=== PATIENT | female | born 1985 | race African-American/Black ===

== ENCOUNTER 2017-09-22 08:37 | Emergency (ER) | payer MEDICAID ==
[2017-09-22 08:39] VITALS: BP 119/89; PULSE 89; RESP 18; TEMP 98.6; O2SAT 99
--- NOTE | 2017-09-22 08:52 | PD ---
HPI Chief Complaint: Cold / Flu Symptoms Time Seen by Provider: 08:52 Travel History International Travel<30 days: No Contact w/Intl Traveler<30days: No Traveled to known affect area: No History of Present Illness HPI 32-year-old female presents to the emergency department for evaluation of cough , chest congestion fever, body aches since last evening. Patient states that she is coughing to the point of emesis. Her ribs are hurting. She reports significant pain in the left rib cage. Denies any nausea or vomiting. She has not had any diarrhea. Denies any urinary symptoms. She is uncertain of . She has no other symptoms to report. [facility] Past Medical History Medical History: Denies Significant Hx ?: Unknown Social History Alcohol Use: No Tobacco Use: Yes (1/2 a pack ) Substance Use: No Allergies-Medications (Allergen,Severity, Reaction): Coded Allergies: No Known Allergies (Unverified , 09/22/17) Review of Systems Except as stated in HPI: all other systems reviewed are Neg Physical Exam Narrative GENERAL: Well-nourished female patient, in no acute distress. SKIN: Focused skin assessment warm/dry. HEAD: Atraumatic. Normocephalic. EARS: Bilateral pinnae and external canals appear within normal limits. Bilateral tympanic membranes without erythema, dullness or perforation. EYES: Pupils equal and round. No scleral icterus. No injection or drainage. ENT: Mucosa pink and moist. Mild erythema without exudate. No uvular edema. No uvular, palatal, or tonsillar deviation. Airway patent. Nasal turbinates appear normal without nasal blood, purulent drainage or septal hematoma. NECK: Trachea midline. No JVD. CARDIOVASCULAR: Regular rate and rhythm. No murmur appreciated. RESPIRATORY: No accessory muscle use. Coarse throughout, inspiratory wheeze, coarse cough as well.. Breath sounds equal bilaterally. GASTROINTESTINAL: Abdomen soft, non-tender, nondistended. Hepatic and splenic margins not palpable. MUSCULOSKELETAL: No obvious deformities. No clubbing. No cyanosis. No edema. NEUROLOGICAL: Awake and alert. No obvious cranial nerve deficits. Motor grossly within normal limits. Normal speech. PSYCHIATRIC: Appropriate mood and affect; insight and judgment normal. Data Data Last Documented VS Vital Signs Date Time Temp Pulse Resp B/P (MAP) Pulse Ox O2 Delivery O2 Flow Rate FiO2 12/21/17 08:39 98.6 89 18 119/89 (99) 99 Room Air Orders Orders Influenzae A/B Antigen (09/22/17 08:56) Chest, Single Ap (09/22/17 08:56) Albuterol-Ipratropium Neb (Duoneb Neb) (09/22/17 09:00) Dexamethasone Inj (Decadron Inj) (09/22/17 09:00) Ed Urine Pregnancytest Poc (09/22/17 08:56) MDM Medical Decision Making Medical Screen Exam Complete: Yes Emergency Medical Condition: Yes Medical Record Reviewed: Yes Differential Diagnosis Influenza versus common cold versus pneumonia versus costochondritis versus viral URI Narrative Course 32-year-old female presents to the emergency department for evaluation. Patient appears without distress. Her influenza is negative. She is afebrile here. Chest x-ray is without acute cardiopulmonary disease. Patient likely has a viral upper respiratory infection. She'll be treated as such. She is encouraged to follow-up with a primary care provider and return immediately with any acute worsening of symptoms. Diagnosis Primary Impression: Bronchitis Referrals: Primary Care Physician Patient Instructions: Acute Bronchitis (ED), General Instructions Additional Instructions: Humidified air may help to alleviate symptoms Follow-up with a primary care provider Tylenol or ibuprofen as directed on the package as needed for fever and/or pain Return immediately to the emergency department with any acute worsening symptoms Med/Other Pt SpecificInfo: Prescription(s) given Scripts Benzonatate (Tessalon Perles) 100 Mg Cap 100 MG PO TID Y for COUGH, #20 CAP 0 Refills Prov: Francesca Tomlinson 09/22/17 Prednisone (Prednisone) 50 Mg Tab 50 MG PO DAILY for 5 Days, #5 TAB 0 Refills Prov: Francesca Tomlinson 09/22/17 Albuterol 18 GM Inh (Ventolin Hfa 18 GM Inh) 90 Mcg/Act Aer 2 PUFF INH Q4H Y for SHORTNESS OF BREATH, #1 INHALER 0 Refills Prov: Francesca Tomlinson 09/22/17 Disposition: 01 DISCHARGE HOME Condition: Stable Francesca Tomlinson Sep 22, 2017 08:52
[2017-09-22] MEDS ORDERED: DEXAMETHASONE SOD PHOS 4 MG/ML VIAL IM ONE (09:00)
[2017-09-22] MEDS: RESP: ALBUTEROL 2.5 MG/IPRATROPIUM 0.5 MG NEB (SCH) INH ×2 (09:24→09:25)
--- NOTE | 2017-09-22 09:29 | RADRPT ---
EXAM DATE/TIME: 09/22/2017 09:01 [place] COMPARISON: No previous studies available for comparison. INDICATIONS : Short of breath. MEDICAL HISTORY : None. SURGICAL HISTORY : None. ENCOUNTER: Initial ACUITY: 1 day PAIN SCORE: 0/10 LOCATION: Bilateral chest FINDINGS: A single view of the chest demonstrates the lungs to be symmetrically aerated without evidence of mas s, infiltrate or effusion. The cardiomediastinal contours are unremarkable. Osseous structures are intact. CONCLUSION: Normal examination. Frankie Moreno MD on September 22, 2017 at 9:27 Board Certified Radiologist. This report was verified electronically.
[2017-09-22] MEDS ORDERED: VENTAER INH (09:47)
[2017-09-22] MEDS ORDERED: BENZ100 PO (09:47)
[2017-09-22] MEDS ORDERED: PRED50 PO (09:47)
== END 2017-09-22 10:07 | disposition home or self-care (01) ==
LOC: NEPD 08:37
DX: J40 Bronchitis, not specified as acute or chronic (principal); F17.200 Nicotine dependence, unspecified, uncomplicated
CPT/HCPCS: 71010; 84703; 87804; 94640; 94664; 96372; 99284; J1100

== ENCOUNTER 2018-02-17 17:37 | Emergency (ER) | payer MEDICAID ==
[~2018-02-17] VITALS: Ht 162.6 cm; Wt 73.7 kg
[~2018-02-17 17:37] MED LIST: BENZ100 PO; PRED50 PO; VENTAER INH
[2018-02-17 17:49] VITALS: BP 131/63; PULSE 95; RESP 16; TEMP 98.4; O2SAT 100
--- NOTE | 2018-02-17 19:44 | PD ---
HPI Chief Complaint: [facility] Problem/Complaint Time Seen by Provider: 18:29 Travel History International Travel<30 days: No Contact w/Intl Traveler<30days: No Traveled to known affect area: No History of Present Illness HPI 32-year-old woman presents to the emergency department complaining of lower abdominal pain. She reports that she had a positive test a couple days ago, but has had negative test since then. She did have bleeding 3 days ago. She reports her last normal menstrual period was January 01. She is 11 para 9. She has had a previous ectopic and had a right salpingectomy last year as well as a left tubal "cleanout" for BV at the time. Since her bleeding over the past couple days she has developed abnormal malodorous vaginal discharge with vaginal irritation and itching. She sexually active one male partner, same partner for the past year. She is having some lower abdominal cramping with this. History Past Medical History Medical History: Denies Significant Hx Tetanus Vaccination: < 5 Years Influenza Vaccination: Yes Social History Alcohol Use: No Tobacco Use: Yes (1/2 a pack ) Allergies-Medications (Allergen,Severity, Reaction): Coded Allergies: No Known Allergies (Unverified , 02/17/18) Reported Meds & Prescriptions Reported Meds & Active Scripts Active No Active Prescriptions or Reported Medications Review of Systems Except as stated in HPI: all other systems reviewed are Neg Physical Exam Narrative CARDIOVASCULAR: Regular rate and rhythm. No murmur appreciated. RESPIRATORY: No accessory muscle use. Clear to auscultation. Breath sounds equal bilaterally. GASTROINTESTINAL: Abdomen soft, non-tender, nondistended. Hepatic and splenic margins not palpable. MUSCULOSKELETAL: No obvious deformities. PELVIC: Normal external female genitalia. Scant clear vaginal discharge. Normal-appearing cervix. No pj cervical motion tenderness. No palpable adnexal masses or uterine enlargement. Data Data Last Documented VS Vital Signs Date Time Temp Pulse Resp B/P (MAP) Pulse Ox O2 Delivery O2 Flow Rate FiO2 02/17/18 17:49 98.4 95 16 131/63 (85) 100 Orders Orders Ed Urine Pregnancytest Poc (02/17/18 18:17) Beta Hcg (Quant/Titer) (02/17/18 18:52) Gc And Chlamydia Pcr (02/17/18 18:52) Wet Prep Profile (02/17/18 18:52) Labs Laboratory Tests Test 02/17/18 19:00 02/17/18 19:20 Human Chorionic Gonadotropin, Quant LESS THAN 1 MIU/ML Clue Cells (Wet Prep) PRESENT Vaginal Trichomonas (Wet Prep) NONE SEEN Vaginal Yeast (Wet Prep) NONE SEEN MDM Medical Decision Making Medical Screen Exam Complete: Yes Emergency Medical Condition: Yes Interpretation(s) LABS: Wet prep, positive for clue cells HCG negative GC chlamydia pending Differential Diagnosis Cervicitis, vaginitis, trichomoniasis, , ectopic, other Narrative Course Medical decision making INITIAL: 32-year-old woman presents emergency department complaining of lower abdominal pain and some cramping and some vaginal discharge. Suspect vaginitis or cervicitis. Possible . Will check beta-hCG given history of ectopic and positive test at home. Likely treatment and discharge. Patient requesting refill on her eczema medicine. Diagnosis Primary Impression: Bacterial vaginosis Patient Instructions: General Instructions Additional Instructions: Take Flagyl as prescribed. Use Diflucan if needed. Follow-up with your primary doctor in [facility] for routine follow-up. Return to the emergency department for any new or worsening symptoms. Med/Other Pt SpecificInfo: Prescription(s) given Scripts Fluocinonide Topical (Fluocinonide Topical) 0.05% Soln 1 APPLIC TOPICAL DAILY, #60 ML 0 Refills Prov: Frankie Mccall MD 02/17/18 Metronidazole (Flagyl) 500 Mg Tab 500 MG PO BID for Infection for 7 Days, #14 TAB 0 Refills Prov: Frankie Mccall MD 02/17/18 Fluconazole (Fluconazole) 150 Mg Tab 150 MG PO ONCE for Infection, #1 TAB 0 Refills Prov: Frankie Mccall MD 02/17/18 Disposition: 01 DISCHARGE HOME Condition: Stable Frankie Mccall MD February 17, 2018 19:44
[2018-02-17 19:50] VITALS: BP 116/75; PULSE 70; RESP 14; O2SAT 100; O2SAT 70
[2018-02-17] MEDS ORDERED: FLUC150T PO (20:21)
[2018-02-17] MEDS ORDERED: FLUO.05%ST TOPICAL (20:21)
[2018-02-17] MEDS ORDERED: METR-1 PO (20:21)
== END 2018-02-17 20:33 | disposition home or self-care (01) ==
LOC: PHED 17:37
DX: N76.0 Acute vaginitis (principal); F17.200 Nicotine dependence, unspecified, uncomplicated
CPT/HCPCS: 84702; 84703; 87210; 87491; 87591; 99284